=== PATIENT | female | born 1985 | race Caucasian/White ===

== ENCOUNTER 2019-07-22 04:11 | Emergency (ER) | payer OTHER ==
[~2019-07-22] VITALS: Ht 160 cm; Wt 53.1 kg
[2019-07-22] MEDS ORDERED: ALBU6.7H9 IH (04:25)
--- NOTE | 2019-07-22 04:30 | NUR ---
Dr. Michael at bedside for MSE.
[2019-07-22] MEDS ORDERED: ONDANSETRON ODT 4 MG TAB.RAPDIS SL ONE (05:00)
[2019-07-22] MEDS ORDERED: SULFAMETH/TRIMETH 800/160 MG TABLET PO ONE (05:00)
[2019-07-22] MEDS ORDERED: HYDROCODONE/APAP 10-325 MG TABLET PO ONE (05:00)
[2019-07-22] MEDS ORDERED: CEFTRIAXONE 1 G VIAL IM ONE (05:00)
[2019-07-22] MEDS ORDERED: HYDROCODONE/APAP 10-325 MG TABLET ONE (05:01)
[2019-07-22] MEDS ORDERED: CEFTRIAXONE 1 G VIAL ONE (05:02)
[2019-07-22] MEDS ORDERED: LIDOCAINE HCL 1% 20 ML VIAL ONE (05:02)
[2019-07-22] MEDS ORDERED: ONDANSETRON ODT 4 MG TAB.RAPDIS ONE (05:02)
[2019-07-22] MEDS ORDERED: SULFAMETH/TRIMETH 800/160 MG TABLET ONE (05:03)
--- NOTE | 2019-07-22 05:16 | NUR ---
Patient discharged to home in stable conditon. Written and verbal after care instructions given. Patient verbalizes understanding of instructions. Pt ambulated out of ER with steady gait, no acute signs of distress, VSS, all belongings taken.
[2019-07-22 05:17] VITALS: BP 135/90
== END 2019-07-22 05:17 | disposition home or self-care (01) ==
LOC: ER 04:22
DX: L02.416 Cutaneous abscess of left lower limb (principal); W57.XXXA Bitten or stung by nonvenomous insect and other nonvenomous arthropods, initial encounter; Y93.89 Activity, other specified; Y92.89 Other specified places as the place of occurrence of the external cause; Y99.8 Other external cause status
CPT/HCPCS: 10060; 96372; 99283; J0696; J3490 ×3; A4663; Q0162

== ENCOUNTER 2023-07-03 22:24 | Emergency (ER) | payer OTHER ==
[~2023-07-03] VITALS: Ht 160 cm; Wt 52.2 kg
[~2023-07-03 22:24] MED LIST: ALBU6.7H9 IH
[2023-07-04 00:07] LABS: BASOPHILS % (AUTO) 0.5 % (0.0-2.0); EOSINOPHILS # (AUTO) 0.1 K/uL (0.0-0.7); EOSINOPHILS % (AUTO) 2.6 % (0.0-7.0); HEMATOCRIT 36.6 % (31.2-41.9); HEMOGLOBIN 12.4 g/dL (10.9-14.3); LYMPHOCYTES # (AUTO) 1.9 K/uL (0.8-4.8); LYMPHOCYTES % (AUTO) 39.3 % (20.5-51.5); MEAN CORPUSCULAR HEMOGLOBIN 31.3 uug (24.7-32.8); MEAN CORPUSCULAR HGB CONC 34 g/dL (32.3-35.6); MEAN CORPUSCULAR VOLUME 92.4 fL (75.5-95.3); MONOCYTES # (AUTO) 0.3 K/uL (0.1-1.30); MONOCYTES % (AUTO) 6.3 % (0.0-11.0); NEUTROPHILS # (AUTO) 2.5 K/uL (1.8-8.9); NEUTROPHILS % (AUTO) 51.3 % (38.5-71.5); PLATELET COUNT (AUTO) 272 K/uL (179-408); RED BLOOD CELL COUNT(AUTO) 3.96 MIL/uL (3.63-4.92); RED CELL DISTRIBUTION WIDTH 12.8 % (12.3-17.7); WHITE BLOOD COUNT (AUTO) 4.9 K/uL (3.8-11.8)
[2023-07-04 00:08] LABS: DIFFERENTIAL COMMENT 1
[2023-07-04] MEDS ORDERED: ACETAMINOPHEN ES 500 MG TABLET ONE (01:07)
[2023-07-04] MEDS ORDERED: ACETAMINOPHEN ES 500 MG TABLET PO ONE (01:15)
[2023-07-04 03:01] VITALS: BP 109/71; TEMP 98.2; O2SAT 100
== END 2023-07-04 03:03 | disposition home or self-care (01) ==
LOC: ER 22:31
DX: S06.0X0A Concussion without loss of consciousness, initial encounter (principal); S00.33XA Contusion of nose, initial encounter; R04.0 Epistaxis; J45.909 Unspecified asthma, uncomplicated; F17.200 Nicotine dependence, unspecified, uncomplicated; Z98.890 Other specified postprocedural states; Z79.899 Other long term (current) drug therapy; Z88.1 Allergy status to other antibiotic agents; M54.2 Cervicalgia; W18.39XA Other fall on same level, initial encounter; Y93.89 Activity, other specified; Y92.89 Other specified places as the place of occurrence of the external cause; Y99.8 Other external cause status
CPT/HCPCS: 70450; 70486; 72125; 85025; A4606; A4663; A9150